=== PATIENT | male | born 1945 | race Caucasian/White ===

== ENCOUNTER → 2021-03-29 | Outpatient (CLI) | payer MEDICARE ==
--- NOTE | 2021-03-29 19:31 | RAD ---
Right knee 3 views: Reason for examination: Right knee and left hand pain. 3 views of the right knee show no acute fracture or dislocation. The bone density is normal. No abnor mal periosteal reaction is seen. Joint spaces are fairly well-maintained. No joint effusion is eviden t. IMPRESSION: No acute abnormality evident in the right knee. Left hand 3 views: No acute fracture or dislocation is seen. The bone density is normal. No abnormal periosteal reaction is seen. Joint spaces are maintained. IMPRESSION: No acute bony abnormality seen in the left hand. Electronically signed by: Nicole Bruce MD (03/29/2021 7:29 PM) [facility]
== END ==
LOC: PMG 17:31
PROVIDERS: ATTEND Nurse Practitioner Family
DX: M25.561 Pain in right knee (principal); M25.532 Pain in left wrist
CPT/HCPCS: 73130; 73562